=== PATIENT | male | born 1960 | race Caucasian/White ===

== ENCOUNTER 2020-11-30 15:28 | Emergency (ER) | payer OTHER ==
[2020-11-30] MEDS ORDERED: Ketorolac 60 MG/2 ML SDV IM ONE (16:00)
--- NOTE | 2020-11-30 16:03 | EDM.PDOC ---
ED HPI GENERAL MEDICAL PROBLEM - General Chief Complaint: Genitourinary Problem Stated Complaint: KIDNEY STONE Time Seen by Provider: 11/30/20 15:58 Source of Information: Reports: Patient, RN Notes Reviewed History Limitations: Reports: No Limitations - History of Present Illness INITIAL COMMENTS - FREE TEXT/NARRATIVE: 60-year-old gentleman presents emergency department day complaint of left flank pain, he states the pain really is gotten worse over the last day or so he does have a history of nephrolithiasis was told that he has some on the left side as well. No fevers no nausea vomiting no difficulty with urination - Related Data Allergies Allergy/AdvReac Type Severity Reaction Status Date / Time No Known Allergies Allergy Verified 11/30/20 15:49 Home Meds: Home Meds *Diuretic/Bp 1 tab PO DAILY 03/01/16 [History] *Statin 1 tab PO DAILY 03/01/16 [History] Etanercept [Enbrel] 25 mg SQ WEEKLY 03/01/16 [History] Aspirin [Halfprin] 81 mg PO DAILY 11/30/20 [History] Ketorolac [Toradol] 10 mg PO TID PRN #20 tab 11/30/20 [Rx] Sulfamethoxazole/Trimethoprim [Bactrim Ds Tablet] 1 each PO BID #14 tablet 11/30/20 [Rx] allopurinoL [Zyloprim] 300 mg PO DAILY 11/30/20 [History] Past Medical History HEENT History: Reports: Impaired Vision Cardiovascular History: Reports: High Cholesterol, Hypertension Musculoskeletal History: Reports: Arthritis, Fracture Neurological History: Reports: Migraines Endocrine/Metabolic History: Reports: Obesity/BMI 30+ Immunologic History: Reports: Immunosuppression, Other (See Below) Other Immunologic History: enbrel injections Dermatologic History: Reports: Seborrheic Dermatitis - Infectious Disease History Infectious Disease History: Reports: Chicken Pox, Measles, Mumps - Past Surgical History Head Surgeries/Procedures: Reports: None HEENT Surgical History: Reports: Tonsillectomy Cardiovascular Surgical History: Reports: None GI Surgical History: Reports: Appendectomy, Colonoscopy Endocrine Surgical History: Reports: None Neurological Surgical History: Reports: None Musculoskeletal Surgical History: Reports: Shoulder Replacement, Shoulder Surgery Social & Family History - Tobacco Use Tobacco Use Status *Q: Never Tobacco User Second Hand Smoke Exposure: No - Caffeine Use Caffeine Use: Reports: None - Alcohol Use Days Per Week of Alcohol Use: 7 Number of Drinks Per Day: 3 Total Drinks Per Week: 21 - Recreational Drug Use Recreational Drug Use: No ED ROS GENERAL - Review of Systems Review Of Systems: See Below Constitutional: Reports: No Symptoms GI/Abdominal: Reports: Abdominal Pain. Denies: Nausea, Vomiting : Reports: Flank Pain ED EXAM, GI/ABD - Physical Exam Exam: See Below Exam Limited By: No Limitations General Appearance: Alert, WD/WN, No Apparent Distress Respiratory/Chest: No Respiratory Distress GI/Abdominal Exam: Soft, Tender (Left flank) Course - Vital Signs Last Recorded V/S: Last Vital Signs Temp 97.5 F 11/30/20 15:57 Pulse 88 11/30/20 18:03 Resp 16 11/30/20 15:57 BP 149/87 H 11/30/20 18:03 Pulse Ox 96 11/30/20 18:03 - Orders/Labs/Meds Labs: Laboratory Tests 11/30/20 Range/Units 16:08 Urine Color Yellow (YELLOW) Urine Appearance Slightly cloudy A (CLEAR) Urine pH 5.5 (5.0-8.0) Ur Specific [place] 1.025 (1.008-1.030) Urine Protein 30 H (NEGATIVE) mg/dL Urine Glucose (UA) Negative (NEGATIVE) mg/dL Urine Ketones Negative (NEGATIVE) mg/dL Urine Occult Blood Moderate H (NEGATIVE) Urine Nitrite Positive H (NEGATIVE) Urine Bilirubin Negative (NEGATIVE) Urine Urobilinogen 0.2 (0.2-1.0) EU/dL Ur Leukocyte Esterase Small H (NEGATIVE) Urine RBC Semi-packed H (0-5) Urine WBC 10-20 H (0-5) Ur Epithelial Cells Rare Amorphous Sediment Not seen Urine Bacteria Many Urine Mucus Not seen Meds: Medications Discontinued Medications Generic Name Dose Route Start Last Admin Trade Name Freq PRN Reason Stop Dose Admin Ketorolac Tromethamine 60 mg 11/30/20 16:00 11/30/20 16:05 Ketorolac 60 Mg/2 Ml Sdv IM 11/30/20 16:01 60 mg ONETIME ONE Administration Departure - Departure Time of Disposition: 18:15 Disposition: Home, Self-Care 01 Condition: Fair Clinical Impression: Kidney stone - Discharge Information Instructions: Kidney Stones, [id number] Referrals: PCP,None [Primary Care Provider] - Forms: ED Department Discharge Additional Instructions: take Bactrim for full 7 days us Ketoralac as needed for pain control, please followup with your primary care provider in 3-5 days if not better, please call return to the emergency department with worsening of symptoms. Sepsis Event Note (ED) - Evaluation Sepsis Screening Result: No Definite Risk - Focused Exam Vital Signs: Vital Signs Temp Pulse Resp BP Pulse Ox 11/30/20 18:03 88 149/87 H 96 11/30/20 17:19 89 160/88 H 95 11/30/20 15:57 97.5 F 98 16 153/91 H 97 11/30/20 15:51 97.5 F 98 16 153/91 H 97 - Assessment/Plan Plan: Assessment Acuity = acute Site and laterality = 4 mm nonobstructing nephrolithiasis left collecting system Etiology = unknown Manifestations = abdominal pain Location of injury = Home Lab values = urinalysis does show positive nitrates 10-20 WBCs consistent with pyuria and packed RBCs consistent with hematuria CT scan describes the nephrolithiasis Plan treat empirically Bactrim ds one po bid for 7 days , also Ketoralac 10 mg po tid prn #20, f/u pcp 3-5 days if not better This note was dictated using [employer] voice recognition software please call with any questions on syntax or grammar.
--- NOTE | 2020-11-30 17:53 | CRLCT ---
Indication: Left flank pain Technique: A CT volumetric acquisition was performed of the abdomen and pelvis without IV contrast. Comparison: None Findings: The lung bases are clear. There is a small 5 mm cyst within the dome of segment VIII right hepatic lobe.The spleen and pancreas appear normal. The gallbladder is contracted. The bile ducts are normal in size. There is no evidence of inflammation about the stomach. The adrenal glands appear normal. Small nonobstructing calculi are noted within the kidneys measuring 1-3 mm in size. There is mild fullness of the left collecting system and left ureter which can be followed distally to the bladder where there is a 4 mm calculus at the ureterovesical juncture. Atherosclerotic changes are present within the aorta but there is no evidence of aneurysm or vascular dissection. The small intestine appears normal. Several diverticula are present within the left colon but no evidence of diverticulitis. The prostate gland appears normal. Impression: Nephrolithiasis and 4 mm calculus noted partially obstructing the collecting system at the ureterovesical juncture. Dictated by Dylan Rios MD @ 11/30/2020 5:50:31 PM Please note that all CT scans at this facility use dose modulation, iterative reconstruction, and/or weight-based dosing when appropriate to reduce radiation dose to as low as reasonably achievable. Dictated by: Dylan Rios MD @ 11/30/2020 17:52:18 (Electronically Signed)
[2020-11-30 18:04] VITALS: BP 149/87; PULSE 88
== END 2020-11-30 18:21 | disposition home or self-care (01) ==
LOC: JP.ED 15:28
DX: N20.2 Calculus of kidney with calculus of ureter (principal); I10 Essential (primary) hypertension; M19.90 Unspecified osteoarthritis, unspecified site; E78.00 Pure hypercholesterolemia, unspecified; E66.9 Obesity, unspecified; Z68.32 Body mass index [BMI] 32.0-32.9, adult; Z79.82 Long term (current) use of aspirin; Z79.899 Other long term (current) drug therapy
CPT/HCPCS: 74176; 81001; 96372; 99284; J1885